=== PATIENT | female | born 1995 | race Two or more races ===

== ENCOUNTER 2018-10-17 22:41 | Emergency (ER) | payer SELFPAY ==
[~2018-10-17] VITALS: Ht 162.6 cm; Wt 92.1 kg
[2018-10-17] MEDS ORDERED: MEDR150V IM (22:51)
[2018-10-17] MEDS ORDERED: KETOROLAC TROMETHAMINE 60 MG INJ IM ONE ×2 (23:15→23:23)
[2018-10-17] MEDS ORDERED: KETOROLAC TROMETHAMINE 30 MG INJ IVP ONE (23:30)
[2018-10-17] MEDS ORDERED: IV NORMAL SALINE 1000 ML BAG IV ONE (23:30)
[2018-10-18 00:10] LABS: *URINE HCG, QUAL NEGATIVE (NEGATIVE)
[2018-10-18 00:12] LABS: *BILIRUBIN,URIN NEGATIVE (NEGATIVE); *BLOOD, URINE 3+ (NEGATIVE); *CLARITY,URINE SLIGHTLY CLOUDY (CLEAR); *COLOR,URINE YELLOW (YELLOW); *KETONES,URINE NEGATIVE (NEGATIVE); *UROBILINOGEN,URINE 0.2 E.U./dl (NORMAL); LEUKOCYTE ESTERASE ,URINE 2+ (NEGATIVE); NITRITE, URINE NEGATIVE (NEGATIVE); UGLUCOSE NEGATIVE (NEGATIVE)
[2018-10-18 00:15] LABS: BACTERIA,URINE MODERATE /HPF (NONE SEEN); RBC,URINE 80-100 /HPF (0-3); SQUAMOUS EPITHELIAL CELL,UR FEW /HPF (NONE SEEN); WBC,URINE 20-50 /HPF (0-3)
[2018-10-18] MEDS ORDERED: CEFTRIAXONE 1 G in IV DEXTROSE 5% 50 ML IV ONE (00:45)
--- NOTE | 2018-10-18 01:02 | NUR ---
Patient is resting comfortably in bed with eyes closed
[2018-10-18] MEDS ORDERED: CEFTRIAXONE 1 G VIAL ONE (01:06)
[2018-10-18 01:59] VITALS: BP 110/78
--- NOTE | 2018-10-18 01:59 | NUR ---
Patient discharged to home in stable conditon. Written and verbal after care instructions given. Patient verbalizes understanding of instructions.
== END 2018-10-18 02:00 | disposition home or self-care (01) ==
LOC: ER 22:46
DX: N39.0 Urinary tract infection, site not specified (principal); Z79.899 Other long term (current) drug therapy
CPT/HCPCS: 74176; 81000; 81001; 84703; 87077; 87086; 87186; 96365; 96375; 99284; J0696; J1885; J7060; A4663; J7030